=== PATIENT | female | born 1980 | race Two or more races ===

== ENCOUNTER 2019-09-27 12:13 | Emergency (ER) | payer MEDICAID ==
[~2019-09-27] VITALS: Ht 162.6 cm; Wt 76.2 kg
[~2019-09-27 12:13] MED LIST: PREN-96 PO
[2019-09-27 12:45] VITALS: BP 125/74
[2019-09-27] MEDS ORDERED: IBUPROFEN 800 MG TAB PO ONE (14:00)
== END 2019-09-27 14:38 | disposition home or self-care (01) ==
LOC: ER 12:13
DX: S93.401A Sprain of unspecified ligament of right ankle, initial encounter (principal); W19.XXXA Unspecified fall, initial encounter; Y93.89 Activity, other specified; Y92.89 Other specified places as the place of occurrence of the external cause; Y99.8 Other external cause status
CPT/HCPCS: 29515; 73590; 73610

== ENCOUNTER 2019-10-11 14:07 | Emergency (ER) | payer MEDICAID ==
[~2019-10-11] VITALS: Ht 162.6 cm; Wt 83.9 kg
[2019-10-11 14:12] VITALS: BP 151/93
== END 2019-10-11 15:21 | disposition home or self-care (01) ==
LOC: ER 14:07
DX: S96.911A Strain of unspecified muscle and tendon at ankle and foot level, right foot, initial encounter (principal); W19.XXXA Unspecified fall, initial encounter; Y93.41 Activity, dancing; Y92.89 Other specified places as the place of occurrence of the external cause; Y99.8 Other external cause status
CPT/HCPCS: 29515; 73630